=== PATIENT | female | born 1985 | race Caucasian/White ===

== ENCOUNTER 2018-08-18 12:39 | Emergency (ER) | payer SELFPAY ==
[2018-08-18 13:20] LABS: #Basophils 0.1 thou/uL (0.0-0.2); #Eosinphils 0.2 thou/uL (0.0-0.7); #Lymphocytes 1.8 thou/uL (1.20-3.40); #Monocytes 0.7 thou/uL (0.11-0.59); #Neutrophils 7.5 thou/uL (1.40-6.50); %Basophils 0.6 % (0.0-1.0); %Eosinophils 2.3 % (0.0-10.0); %Lymphocytes 17.9 % (21.0-51.0); %Monocytes 6.3 % (0.0-10.0); %Neutrophils 72.9 % (42.0-75.0); Hemoglobin 14.1 g/dL (12.0-16.0); Mean Corpuscular HGB CONC 33.5 g/dL (32.0-36.0); Mean Corpuscular Hemoglobin 29.8 pg (27.0-31.0); Mean Platelet Volume 6.8 fL (7.4-10.4); Platelet Count 338 thou/uL (130-400); RBC Distribution Width 11.9 % (11.5-14.5); Red Blood Cell (RBC) Count 4.72 mill/uL (4.20-5.40); White Blood Cell (WBC) Count 10.2 thou/uL (4.8-10.8)
--- NOTE | 2018-08-18 15:02 | ULT ---
ULTRASOUND PELVIC ULTRASOUND TRANSVAGINAL DOPPLER DUPLEX: DATE: 08/18/2018 HISTORY: 33-year-old female with pelvic pain and first trimester vaginal bleeding. TECHNIQUE: Transabdominal transducer and endovaginal transducer used to visualize intrapelvic contents with miguel scale, color-flow, and spectral analysis. FINDINGS: Uterus measures 10 x 5 x 5 cm. No free fluid in the cul-de-sac. Endometrial stripe is 13 mm thick at the fundus. Endometrial stripe has heterogeneous echogenicity. A t the body of the uterus, the endometrial stripe is approximately 18 mm, and contains a tiny 10 x 2.5 mm hypoechoic focus with mixed central and intermediate echogenicity. This may or may not represe nt an abnormal, nonviable gestational sac. There is no recognizable pole, yolk sac, or heart activity. The ovaries are not visualized. IMPRESSION: 1. No evidence of a normal intrauterine gestation. 2. Thickened and heterogeneous endometrial stripe. 3. Recommend serial follow-up serum beta hCG levels, and if clinically indicated, follow-up pelvic an d transvaginal ultrasound.
== END 2018-08-18 15:44 | disposition home or self-care (01) ==
LOC: ERS 12:39
DX: O03.9 Complete or unspecified spontaneous abortion without complication (principal); Z79.899 Other long term (current) drug therapy
CPT/HCPCS: 36415; 76856; 85025; 86900; 86901

== ENCOUNTER 2019-01-27 21:51 | Emergency (ER) | payer SELFPAY ==
[2019-01-28 00:50] LABS: #Basophils 0.1 thou/uL (0.0-0.2); #Eosinphils 0.9 thou/uL (0.0-0.7); #Lymphocytes 2.8 thou/uL (1.20-3.40); #Monocytes 0.6 thou/uL (0.11-0.59); #Neutrophils 8.5 thou/uL (1.40-6.50); %Basophils 0.6 % (0.0-1.0); %Eosinophils 6.9 % (0.0-10.0); %Lymphocytes 21.7 % (21.0-51.0); %Monocytes 4.9 % (0.0-10.0); Hemoglobin 13.9 g/dL (12.0-16.0); Mean Corpuscular HGB CONC 33.2 g/dL (32.0-36.0); Mean Corpuscular Hemoglobin 28.6 pg (27.0-31.0); Mean Corpuscular Volume 86.1 fL (78.0-98.0); Mean Platelet Volume 6.6 fL (7.4-10.4); Platelet Count 338 thou/uL (130-400); RBC Distribution Width 12.6 % (11.5-14.5); Red Blood Cell (RBC) Count 4.88 mill/uL (4.20-5.40); White Blood Cell (WBC) Count 12.9 thou/uL (4.8-10.8)
[2019-01-28 01:14] LABS: ALT (SGPT) 11 U/L (8-55); AST (SGOT) 18 U/L (5-34); Albumin 4.5 g/dL (3.5-5.0); Alkaline Phosphatase 101 U/L (40-110); Anion Gap 16 mmol/L (10-20); BUN (Urea Nitrogen) 10 mg/dL (7.0-18.7); Bilirubin, Total 0.4 mg/dL (0.2-1.2); Calc. Creatinine Clearance 0 mL/min (70-130); Calcium 9.6 mg/dL (7.8-10.44); Carbon Dioxide 18 mmol/L (22-29); Chloride 107 mmol/L (98-107); Estimated GFR-MDRD 77; Globulin 3.1 g/dL (2.4-3.5); Glucose 107 mg/dL (70-105); Potassium 3.8 mmol/L (3.5-5.1); Protein, Total 7.6 g/dL (6.0-8.3); Sodium 137 mmol/L (136-145)
[2019-01-28 02:22] LABS: Bacteria/HPF None Seen HPF (None Seen); Bilirubin Negative (Negative); Blood, Urine 2+ (Negative); Clarity Clear (Clear); Glucose, Urine (Dipstick) Normal (Negative); Leukocyte Negative Leu/uL (Negative); Mucous/LPF 4+ LPF (<2+); Nitrite Negative (Negative); Protein, Urine (Dipstick) 20 mg/dL (Neg-Trace); RBC/HPF 0-3 HPF (0-3); Squamous Epithelial 0-3 HPF (0-3); WBC/HPF 0-3 HPF (0-3)
--- NOTE | 2019-01-28 07:32 | ULT ---
PRELIMINARY REPORT/[facility]/EMERGENCY AFTER HOURS PROCEDURE: CLINICAL HISTORY: HX: VAG BLEEDING. QHCG 17K. 11WKS BY DATES. TECHNIQUE: Transvaginal imaging of the maternal pelvis and a <14 week gestation with image documenta tion. COMPARISON: None provided. FINDINGS: GESTATION: A CRL of 3.7 mm corresponds to 6 weeks 1 day however there is no evidence for heartb eat UTERUS: Unremarkable. No myometrial mass. Measures 9.6 x 5.4 x 7.6 cm CERVIX: Closed. Unremarkable. OVARIES: The ovaries appear to be grossly unremarkable measuring 1.8 x 1.1 x 2.1 cm on the left and 3 .7 x 1.8 x 1.9 cm on the right however they are poorly visualized. FREE FLUID: No free fluid. IMPRESSION: Intrauterine gestation of 6 weeks 1 day with no evidence for heartbeat. Confirmati on of the patient's dates is advised in order to exclude demise ELECTRONICALLY SIGNED BY: Luis Kathleen MD Jan 28, 2019 1:41:01 AM SUCCESS COACH FINAL REPORT: OBSTETRIC SONOGRAM TRANSABDOMINAL AND TRANSVAGINAL IMAGING: DATE: 01/28/2019. TIME: Performed on an emergency basis at 0107 hours. HISTORY: Vaginal bleeding. Early gestation. FINDINGS: Agree with the preliminary report by Dr. Kathleen from [facility]. Single intrauterine gestation. No evidence of heart beat. 6 weeks 1 day gestational age. Findings suggestive of intrauterine demise. Transcribed Date/Time: 01/28/2019 7:59 AM
== END 2019-01-28 02:40 | disposition home or self-care (01) ==
LOC: ERS 21:51
DX: O20.0 Threatened abortion (principal); O9A.211 Injury, poisoning and certain other consequences of external causes complicating pregnancy, first trimester; T49.8X1A Poisoning by other topical agents, accidental (unintentional), initial encounter; O99.711 Diseases of the skin and subcutaneous tissue complicating pregnancy, first trimester; L25.0 Unspecified contact dermatitis due to cosmetics; O09.521 Supervision of elderly multigravida, first trimester; Z3A.11 11 weeks gestation of pregnancy
CPT/HCPCS: 36415; 76856; 80053; 81003; 81015; 84702; 85025; 86900; 86901

== ENCOUNTER 2019-01-29 11:31 | Emergency (ER) | payer SELFPAY ==
[2019-01-29 12:19] LABS: #Basophils 0.1 thou/uL (0.0-0.2); #Eosinphils 0.8 thou/uL (0.0-0.7); #Lymphocytes 1.7 thou/uL (1.20-3.40); #Monocytes 0.7 thou/uL (0.11-0.59); #Neutrophils 7.5 thou/uL (1.40-6.50); %Basophils 0.6 % (0.0-1.0); %Eosinophils 7.2 % (0.0-10.0); %Lymphocytes 15.8 % (21.0-51.0); %Monocytes 6.4 % (0.0-10.0); %Neutrophils 69.9 % (42.0-75.0); Hemoglobin 13.2 g/dL (12.0-16.0); Mean Corpuscular HGB CONC 33.3 g/dL (32.0-36.0); Mean Corpuscular Hemoglobin 28.8 pg (27.0-31.0); Mean Corpuscular Volume 86.4 fL (78.0-98.0); Mean Platelet Volume 6.7 fL (7.4-10.4); Platelet Count 307 thou/uL (130-400); RBC Distribution Width 12.6 % (11.5-14.5); Red Blood Cell (RBC) Count 4.58 mill/uL (4.20-5.40); White Blood Cell (WBC) Count 10.8 thou/uL (4.8-10.8)
[2019-01-29 13:12] LABS: Albumin 4.3 g/dL (3.5-5.0)
[2019-01-29 13:13] LABS: Chloride 107 mmol/L (98-107); Potassium 4.4 mmol/L (3.5-5.1); Sodium 140 mmol/L (136-145)
[2019-01-29 13:14] LABS: Calcium 9.7 mg/dL (7.8-10.44); Glucose 115 mg/dL (70-105)
[2019-01-29 13:15] LABS: Globulin 2.9 g/dL (2.4-3.5); Protein, Total 7.2 g/dL (6.0-8.3)
[2019-01-29 13:16] LABS: Anion Gap 14 mmol/L (10-20); Bilirubin, Total 0.6 mg/dL (0.2-1.2); Carbon Dioxide 23 mmol/L (22-29)
[2019-01-29 13:17] LABS: Alkaline Phosphatase 100 U/L (40-110)
[2019-01-29 13:18] LABS: Calc. Creatinine Clearance 0 mL/min (70-130); Estimated GFR-MDRD 76
[2019-01-29 13:19] LABS: BUN (Urea Nitrogen) 9 mg/dL (7.0-18.7)
[2019-01-29 13:20] LABS: ALT (SGPT) 12 U/L (8-55); AST (SGOT) 18 U/L (5-34)
--- NOTE | 2019-01-29 15:50 | PDOC.EVN ---
Event Note - Event Note Event Note: Called to ER for consultation of suspected incomplete Ab with heavy vaginal bleeding. When I arrived pt reports she passed the fetus at 10 am, that she her last pad change(30 min ago) had been an hour. She has no more cramping. Pad dry after 30 min. Given the apparent resolution of the situation I confirmed the pt will be seeing Dr Yost for follow-up. I spoke to Johanna Chance, the chain maker machine managing the case, and informed her that if she is comfortable I am stepping away from the consultation with support of the pt and her . vital signs stable. She is comfortable managing and making final disposition
[2019-01-29] MEDS ORDERED: Misoprostol 200 MCG TAB PR SCH (18:00)
[2019-01-29 18:38] LABS: #Basophils 0.1 thou/uL (0.0-0.2); #Eosinphils 0.4 thou/uL (0.0-0.7); #Lymphocytes 1.9 thou/uL (1.20-3.40); #Monocytes 0.6 thou/uL (0.11-0.59); #Neutrophils 10.3 thou/uL (1.40-6.50); %Basophils 0.6 % (0.0-1.0); %Eosinophils 2.9 % (0.0-10.0); %Lymphocytes 14.3 % (21.0-51.0); %Monocytes 4.8 % (0.0-10.0); %Neutrophils 77.4 % (42.0-75.0); Mean Corpuscular HGB CONC 32.8 g/dL (32.0-36.0); Mean Corpuscular Hemoglobin 28.2 pg (27.0-31.0); Mean Corpuscular Volume 85.9 fL (78.0-98.0); Mean Platelet Volume 7.2 fL (7.4-10.4); Platelet Count 325 thou/uL (130-400); RBC Distribution Width 12.6 % (11.5-14.5); Red Blood Cell (RBC) Count 4.27 mill/uL (4.20-5.40); White Blood Cell (WBC) Count 13.3 thou/uL (4.8-10.8)
== END 2019-01-29 20:44 | disposition home or self-care (01) ==
LOC: ERS 11:31
DX: O03.9 Complete or unspecified spontaneous abortion without complication (principal)
CPT/HCPCS: 36415; 80053; 84702; 85025; 86900; 86901; 96360; 96361